=== PATIENT | male | born 1955 | race Caucasian/White ===

== ENCOUNTER 2018-03-22 13:25 | Observation (INO) ==
[2018-03-22] MEDS ORDERED: ACETAMINOPHEN 325 MG TABLET PO PRN (17:01)
[2018-03-22] MEDS ORDERED: PROMETHAZINE 25 MG/1 ML VIAL IM PRN (17:01)
[2018-03-22 17:48] LABS: Basophils % 0.3 % (0.0-0.8); Eosinophils # 0.5 10*3/uL (0.0-0.87); Eosinophils % 4.5 % (0.00-10.9); Hemoglobin 8.7 GM/DL (14.0-18.0); Immature Granulocytes % 1.5 %; Immature Granulocytes Absolute 0.16 #; Lymphocytes # 2.2 10*3/uL (1.4-4.0); Lymphocytes % 20.9 % (21.2-54.2); Mean Corpuscular HGB Conc 31.1 GM/DL (32-36); Mean Corpuscular Hemoglobin 31 PG (27-34); Mean Corpuscular Volume 98.2 FL (87-102); Mean Platelet Volume 10.1 FL (9.6-12.0); Monocytes # 0.8 10*3/uL (0.11-0.8); Monocytes % 7.4 % (1.7-12.7); Neutrophils # 6.9 10*3/uL (1.4-7.4); Neutrophils % 65.4 % (38.7-73.9); Platelet Count 89 T/CUMM (130-400); Red Blood Count 2.85 MC/CUMM (3.8-5.5); Red Cell Distribution Width 15.4 % (9.3-17.3); White Blood Count 10.5 T/CUMM (4-12)
[2018-03-22 18:11] LABS: Alanine Aminotransferase 13 U/L (16-61); Alkaline Phosphatase 133 U/L (45-117); Aspartate Amino Transferase 13 U/L (0-37); Bilirubin,Total < 0.39 MG/DL (0.2-1.0); Blood Urea Nitrogen 38 MG/DL (7-18); Calcium 8.3 MG/DL (8.5-10.1); Glucose 93 MG/DL (74-106); Osmolality,Calculated 285.5 MOS/KG (273-304); Potassium 4.6 MMOL/L (3.5-5.1); Sodium 139 MMOL/L (136-145); Total Protein 5.9 G/DL (6.4-8.3)
[2018-03-22 18:13] LABS: % Iron Saturation 8.9 % (18-50); Ferritin 124.6 ng/ml (26-388)
[2018-03-22 18:18] LABS: Thyroid Stimulating Hormone 0.369 uIU/ml (0.358-3.74)
[2018-03-22 18:29] LABS: Folate 7.7 NG/ML (5.4-24.0)
[2018-03-22] MEDS: SODIUM CHLORIDE 0.9% 1,000 ML IV SCH (18:45)
[2018-03-22] MEDS: TAMSULOSIN 0.4 MG CAPSULE PO SCH (21:57)
[2018-03-22] MEDS: PANTOPRAZOLE 40 MG VIAL IV SCH (21:57)
[2018-03-22] MEDS: buPROPion XL 150 MG TABLET PO SCH (21:57)
[2018-03-22] MEDS: traZODone 50 MG TABLET PO SCH (21:57)
[2018-03-22] MEDS: DOCUSATE SODIUM 100 MG CAPSULE PO SCH (21:57)
[2018-03-23] MEDS: SODIUM CHLORIDE 0.9% 1,000 ML IV SCH ×2 (01:56→10:10)
[2018-03-23 05:48] LABS: VLDL CHOLESTEROL 21.2 MG/DL
[2018-03-23 05:50] LABS: Albumin 1.8 G/DL (3.4-5.0); Bilirubin,Total 0.6 MG/DL (0.2-1.0); Osmolality,Calculated 291.1 MOS/KG (273-304); Potassium 4.3 MMOL/L (3.5-5.1); Total Protein 5.3 G/DL (6.4-8.3)
[2018-03-23 06:35] LABS: Basophils # 0.1 10*3/uL (0.0-0.2); Basophils % 0.5 % (0.0-0.8); Eosinophils # 1.3 10*3/uL (0.0-0.87); Eosinophils % 11.7 % (0.00-10.9); Hematocrit 25.7 VOL% (42.0-52.0); Hemoglobin 8.2 GM/DL (14.0-18.0); Immature Granulocytes % 1.4 %; Immature Granulocytes Absolute 0.15 #; Lymphocytes # 2.2 10*3/uL (1.4-4.0); Lymphocytes % 20.2 % (21.2-54.2); Mean Corpuscular HGB Conc 31.9 GM/DL (32-36); Mean Corpuscular Hemoglobin 31 PG (27-34); Mean Corpuscular Volume 98.1 FL (87-102); Mean Platelet Volume 10.6 FL (9.6-12.0); Monocytes % 9.1 % (1.7-12.7); NRBC # 0.02 10*3/uL; Neutrophils # 6.3 10*3/uL (1.4-7.4); Neutrophils % 57.1 % (38.7-73.9); Platelet Count 86 T/CUMM (130-400); Red Blood Count 2.62 MC/CUMM (3.8-5.5); Red Cell Distribution Width 15.7 % (9.3-17.3)
[2018-03-23 06:56] LABS: Eosinophils 6 % (0-10); Hypochromasia 1+; Lymphocytes 18 % (20-55); Platelet Estimate Decreased; Polychromasia Few; Segmented Neutrophils 75 % (50-85); Total Cells Counted 100
[2018-03-23] MEDS: ONDANSETRON 4 MG/2 ML VIAL IV PRN (07:09)
[2018-03-23] MEDS ORDERED: PANTOPRAZOLE 40 MG TABLET PO SCH (09:00)
[2018-03-23] MEDS: TAMSULOSIN 0.4 MG CAPSULE PO SCH ×2 (09:08→21:15)
[2018-03-23] MEDS: PANTOPRAZOLE 40 MG VIAL IV SCH ×2 (09:08→21:15)
[2018-03-23] MEDS: DOCUSATE SODIUM 100 MG CAPSULE PO SCH ×2 (09:08→21:15)
[2018-03-23] MEDS: buPROPion XL 150 MG TABLET PO SCH ×2 (09:08→21:15)
[2018-03-23 12:59] LABS: Apearance,Urine CLEAR (Clear); Bilirubin,Urine Negative (Negative); Blood, Urine Small mg/dL (Negative); Glucose,Urine (UA) Negative (Negative); Ketones,Urine Negative (Negative); Nitrite,Urine Negative (Negative); Protein,Urine 100 MG/DL; Urine Color Yellow (Yellow); Urine Specific Gravity 1.013 (1.001-1.035); Urine Urobilinogen < 2.0 EU/DL (0.2-1.0)
[2018-03-23 13:20] LABS: Bacteria,Urine Few /HPF (Few); RBC,Urine 0-1 /HPF (0-4)
[2018-03-23] MEDS: FOLIC ACID 1 MG TABLET PO SCH (21:14)
[2018-03-23] MEDS: ACYCLOVIR 200 MG CAPSULE PO SCH (21:14)
[2018-03-23] MEDS: traZODone 50 MG TABLET PO SCH (21:15)
[2018-03-24 07:42] LABS: Basophils % 0.3 % (0.0-0.8); Eosinophils # 1.1 10*3/uL (0.0-0.87); Eosinophils % 10.2 % (0.00-10.9); Hematocrit 25.1 VOL% (42.0-52.0); Immature Granulocytes Absolute 0.11 #; Lymphocytes % 18.8 % (21.2-54.2); Mean Corpuscular HGB Conc 31.9 GM/DL (32-36); Mean Corpuscular Hemoglobin 31 PG (27-34); Mean Corpuscular Volume 97.7 FL (87-102); Mean Platelet Volume 10.2 FL (9.6-12.0); Monocytes % 9.5 % (1.7-12.7); Neutrophils # 6.5 10*3/uL (1.4-7.4); Neutrophils % 60.2 % (38.7-73.9); Platelet Count 86 T/CUMM (130-400); Red Blood Count 2.57 MC/CUMM (3.8-5.5); Red Cell Distribution Width 15.7 % (9.3-17.3); White Blood Count 10.9 T/CUMM (4-12)
[2018-03-24 07:58] VITALS: BP 145/85
[2018-03-24 08:00] LABS: Calcium 8.1 MG/DL (8.5-10.1); Osmolality,Calculated 284.4 MOS/KG (273-304); Potassium 4.6 MMOL/L (3.5-5.1)
[2018-03-24 08:04] LABS: Hypochromasia 1+; Platelet Estimate Decreased
[2018-03-24] MEDS: ONDANSETRON 4 MG/2 ML VIAL IV PRN (08:51)
[2018-03-24] MEDS: TAMSULOSIN 0.4 MG CAPSULE PO SCH (08:52)
[2018-03-24] MEDS: ACYCLOVIR 200 MG CAPSULE PO SCH (08:52)
[2018-03-24] MEDS: PANTOPRAZOLE 40 MG VIAL IV SCH (08:52)
[2018-03-24] MEDS: FOLIC ACID 1 MG TABLET PO SCH (08:52)
[2018-03-24] MEDS: buPROPion XL 150 MG TABLET PO SCH (08:52)
[2018-03-24] MEDS: DOCUSATE SODIUM 100 MG CAPSULE PO SCH (08:52)
== END 2018-03-24 12:04 | disposition home or self-care (01) ==
LOC: INTOOBSV 15:02 → N.5E 15:02 → SUATTDRO 15:02
PROVIDERS: ADMIT Internal Medicine; ATTEND Internal Medicine

== ENCOUNTER 2018-07-04 13:29 | Inpatient (IN) ==
[2018-07-04] MEDS ORDERED: ALBUTEROL/IPRATROPIUM 3 ML NEB RESP TX STA (13:53)
[2018-07-04] MEDS ORDERED: SODIUM CHLORIDE 0.9% 1,000 ML IV STA (13:53)
[2018-07-04] MEDS ORDERED: cefTRIAXone 1,000 MG VIAL IM STA (13:53)
[2018-07-04] MEDS ORDERED: SODIUM CHLORIDE 0.9% 100 ML IV ONE (14:13)
[2018-07-04] MEDS ORDERED: cefTRIAXone 1,000 MG in SODIUM CHLORIDE 0.9% 100 ML IV STA (14:19)
[2018-07-04 14:24] LABS: Basophils % 0.3 % (0.0-0.8); Hematocrit 32.2 VOL% (42.0-52.0); Hemoglobin 9.6 GM/DL (14.0-18.0); Immature Granulocytes % 0.8 %; Immature Granulocytes Absolute 0.07 #; Lymphocytes # 0.7 10*3/uL (1.4-4.0); Lymphocytes % 7.3 % (21.2-54.2); Mean Corpuscular HGB Conc 29.8 GM/DL (32-36); Mean Corpuscular Volume 105.9 FL (87-102); Mean Platelet Volume 10.1 FL (9.6-12.0); Monocytes % 5.2 % (1.7-12.7); Neutrophils % 86.4 % (38.7-73.9); Red Blood Count 3.04 MC/CUMM (3.8-5.5); White Blood Count 9.2 T/CUMM (4-12)
[2018-07-04 14:25] LABS: Platelet Count 50 T/CUMM (130-400)
[2018-07-04 14:42] LABS: Albumin 2.1 G/DL (3.4-5.0); Bilirubin,Total 0.4 MG/DL (0.2-1.0); Calcium 8.2 MG/DL (8.5-10.1); Osmolality,Calculated 289.4 MOS/KG (273-304); Total Protein 5.2 G/DL (6.4-8.3)
[2018-07-04 14:45] LABS: Anisocytosis 1+; Platelet Estimate Decreased
[2018-07-04] MEDS ORDERED: ALBUTEROL 2.5 MG/3 ML NEB RESP TX PRN (16:35)
[2018-07-04 16:54] LABS: Apearance,Urine CLEAR (Clear); Bacteria,Urine Occasional /HPF (Few); Bilirubin,Urine Negative (Negative); Blood, Urine Moderate mg/dL (Negative); Glucose,Urine (UA) Negative (Negative); Ketones,Urine Negative (Negative); Mucus,Urine Occasional /LPF (Occasional); Nitrite,Urine Negative (Negative); Protein,Urine >=500 MG/DL; RBC,Urine 4 /HPF (0-4); Squamous Epithelial Cell,Urine Occasional /HPF (0-10); Urine Color Yellow (Yellow); Urine Specific Gravity 1.012 (1.001-1.035); Urine Urobilinogen < 2.0 EU/DL (0.2-1.0); WBC,Urine 1 /HPF (0-6)
[2018-07-04] MEDS ORDERED: methylPREDNISolone SOD SUC 125 MG/2 ML VIAL IV SCH (17:00)
[2018-07-04] MEDS ORDERED: ONDANSETRON 4 MG TABLET PO PRN (17:04)
[2018-07-04] MEDS: PIPERACILLIN/TAZOBACTAM 3,375 MG in SODIUM CHLORIDE 0.9% 100 ML IV SCH (17:04)
[2018-07-04] MEDS ORDERED: ACETAMINOPHEN 325 MG TABLET PO PRN (17:06)
[2018-07-04] MEDS ORDERED: ONDANSETRON 4 MG/2 ML VIAL IV PRN (17:06)
[2018-07-04] MEDS ORDERED: PROMETHAZINE 25 MG/1 ML VIAL IM PRN (17:06)
[2018-07-04 17:33] LABS: ABG Base Excess -3.2 MMOL/L (-2.5-2.5); ABG HCO3 21.7 MMOL/L (20-26); ABG Oxygen Saturation 95.3 % (95-100); ABG PCO2 38.8 MM HG (35-48); ABG PO2 82.8 MM HG (80-95); ABG TCO2 19.8 MMOL/L (23-27)
[2018-07-04] MEDS: buPROPion SR 150 MG TABLET PO SCH (20:11)
[2018-07-04] MEDS: guaiFENesin/DM ER 600-30 MG TABLET PO PRN (20:11)
[2018-07-04] MEDS: ACYCLOVIR 200 MG CAPSULE PO SCH (20:12)
[2018-07-04] MEDS: MELATONIN 3 MG TABLET PO SCH (20:12)
[2018-07-04] MEDS: TAMSULOSIN 0.4 MG CAPSULE PO SCH (20:12)
[2018-07-04 20:25] LABS: CKMB % 3.2 %; Troponin I 0.356 NG/ML (0.00-0.045)
[2018-07-04] MEDS: methylPREDNISolone SOD SUC 40 MG/1 ML VIAL IV SCH (20:59)
[2018-07-04] MEDS: SODIUM CHLORIDE 0.45% 1,000 ML IV SCH (21:01)
[2018-07-05] MEDS: PIPERACILLIN/TAZOBACTAM 3,375 MG in SODIUM CHLORIDE 0.9% 100 ML IV SCH ×3 (00:29→16:32)
[2018-07-05 05:26] LABS: Basophils % 0.2 % (0.0-0.8); Hematocrit 26.8 VOL% (42.0-52.0); Hemoglobin 8.2 GM/DL (14.0-18.0); Immature Granulocytes % 0.5 %; Immature Granulocytes Absolute 0.03 #; Lymphocytes # 0.8 10*3/uL (1.4-4.0); Lymphocytes % 13.5 % (21.2-54.2); Mean Corpuscular HGB Conc 30.6 GM/DL (32-36); Mean Corpuscular Volume 105.1 FL (87-102); Mean Platelet Volume 10.2 FL (9.6-12.0); Monocytes % 2.8 % (1.7-12.7); Red Blood Count 2.55 MC/CUMM (3.8-5.5); Red Cell Distribution Width 16.4 % (9.3-17.3); White Blood Count 6.1 T/CUMM (4-12)
[2018-07-05 05:36] LABS: Platelet Count 37 T/CUMM (130-400)
[2018-07-05 05:43] LABS: Albumin 1.9 G/DL (3.4-5.0); Bilirubin,Total 0.5 MG/DL (0.2-1.0); Calcium 7.9 MG/DL (8.5-10.1); Osmolality,Calculated 294.3 MOS/KG (273-304); Total Protein 4.8 G/DL (6.4-8.3)
[2018-07-05 05:45] LABS: CKMB % 3.8 %; Troponin I 0.264 NG/ML (0.00-0.045)
[2018-07-05 05:47] LABS: Hypochromasia 1+; Platelet Estimate Decreased
[2018-07-05] MEDS ORDERED: SPIRONOLACTONE 25 MG TABLET PO SCH (09:00)
[2018-07-05] MEDS ORDERED: predniSONE 10 MG TABLET PO SCH (09:00)
[2018-07-05] MEDS ORDERED: ASPIRIN EC 81 MG TABLET PO SCH (09:00)
[2018-07-05] MEDS: DOXYCYCLINE HYCLATE 100 MG CAPSULE PO SCH (10:16)
[2018-07-05] MEDS: ACYCLOVIR 200 MG CAPSULE PO SCH ×2 (10:16→20:10)
[2018-07-05] MEDS: POTASSIUM GLUCONATE 500 MG TABLET PO SCH (10:17)
[2018-07-05] MEDS: FUROSEMIDE 20 MG TABLET PO SCH (10:17)
[2018-07-05] MEDS: buPROPion SR 150 MG TABLET PO SCH ×2 (10:17→20:10)
[2018-07-05] MEDS: TAMSULOSIN 0.4 MG CAPSULE PO SCH (10:18)
[2018-07-05] MEDS: FLUCONAZOLE INJ 200 MG in PREMIX 1 EACH IV SCH (10:19)
[2018-07-05] MEDS: methylPREDNISolone SOD SUC 40 MG/1 ML VIAL IV SCH ×2 (10:19→20:11)
[2018-07-05] MEDS: guaiFENesin/DM ER 600-30 MG TABLET PO PRN (10:40)
[2018-07-05] MEDS: ALBUTEROL/IPRATROPIUM 3 ML NEB RESP TX SCH ×2 (12:20→20:00)
[2018-07-05 17:10] LABS: Creatinine,Urine Random 69 MG/DL; Total Protein,Urine Random 360 MG/DL; Urea Nitrogen, Urine Random 773 MG/DL
[2018-07-05] MEDS: ALFUZOSIN 10 MG TABLET PO SCH (20:10)
[2018-07-05] MEDS: ROSUVASTATIN 20 MG TABLET PO SCH (20:10)
[2018-07-05] MEDS: MELATONIN 3 MG TABLET PO SCH (20:10)
[2018-07-06] MEDS: SODIUM CHLORIDE 0.45% 1,000 ML IV SCH (00:11)
[2018-07-06] MEDS: PIPERACILLIN/TAZOBACTAM 3,375 MG in SODIUM CHLORIDE 0.9% 100 ML IV SCH ×3 (00:12→20:10)
[2018-07-06] MEDS: ALBUTEROL/IPRATROPIUM 3 ML NEB RESP TX SCH ×4 (01:00→20:13)
[2018-07-06 04:56] LABS: Basophils % 0.2 % (0.0-0.8); Hematocrit 25.1 VOL% (42.0-52.0); Hemoglobin 7.6 GM/DL (14.0-18.0); Immature Granulocytes % 0.5 %; Immature Granulocytes Absolute 0.03 #; Lymphocytes # 0.7 10*3/uL (1.4-4.0); Lymphocytes % 10.5 % (21.2-54.2); Mean Corpuscular HGB Conc 30.3 GM/DL (32-36); Mean Corpuscular Volume 104.1 FL (87-102); Mean Platelet Volume 11.6 FL (9.6-12.0); Monocytes % 5.3 % (1.7-12.7); Neutrophils % 83.5 % (38.7-73.9); Red Blood Count 2.41 MC/CUMM (3.8-5.5); Red Cell Distribution Width 16.1 % (9.3-17.3); White Blood Count 6.6 T/CUMM (4-12)
[2018-07-06 05:05] LABS: Platelet Count 36 T/CUMM (130-400)
[2018-07-06 05:15] LABS: Calcium 7.9 MG/DL (8.5-10.1); Osmolality,Calculated 299.4 MOS/KG (273-304)
[2018-07-06 05:16] LABS: Hypochromasia 1+; Ovalocytes Slight; Platelet Estimate Decreased
[2018-07-06 05:18] LABS: Albumin 1.7 G/DL (3.4-5.0); Bilirubin,Total 0.7 MG/DL (0.2-1.0); Calcium 7.8 MG/DL (8.5-10.1); Osmolality,Calculated 297.5 MOS/KG (273-304); Total Protein 4.6 G/DL (6.4-8.3)
[2018-07-06] MEDS ORDERED: SODIUM CHLORIDE 0.9% 1,000 ML IV PRN (07:03)
[2018-07-06] MEDS: POTASSIUM GLUCONATE 500 MG TABLET PO SCH (08:36)
[2018-07-06] MEDS: methylPREDNISolone SOD SUC 40 MG/1 ML VIAL IV SCH ×2 (08:36→20:08)
[2018-07-06] MEDS: FUROSEMIDE 20 MG TABLET PO SCH (08:36)
[2018-07-06] MEDS: ACYCLOVIR 200 MG CAPSULE PO SCH ×2 (08:37→20:08)
[2018-07-06] MEDS: guaiFENesin/DM ER 600-30 MG TABLET PO PRN (08:37)
[2018-07-06] MEDS: DOXYCYCLINE HYCLATE 100 MG CAPSULE PO SCH (08:37)
[2018-07-06] MEDS: buPROPion SR 150 MG TABLET PO SCH ×2 (08:37→20:08)
[2018-07-06 09:05] LABS: Immuno Free Light Chain Kappa 4.95 MG/DL (0.33-1.94); Immuno Free Light Chain Lambda 4.01 MG/DL (0.57-2.63); Immuno Free Light Chain Ratio 1.23 MG/DL (0.26-1.65)
[2018-07-06] MEDS: FLUCONAZOLE INJ 200 MG in PREMIX 1 EACH IV SCH (10:33)
[2018-07-06] MEDS: hydrALAZINE 20 MG/1 ML VIAL IV PRN ×2 (16:08→20:47)
[2018-07-06] MEDS ORDERED: CARVEDILOL 3.125 MG TABLET PO ONE (17:30)
[2018-07-06] MEDS ORDERED: FUROSEMIDE 40 MG/4 ML VIAL IM ONE (18:31)
[2018-07-06] MEDS ORDERED: FUROSEMIDE 40 MG/4 ML VIAL IV ONE (18:31)
[2018-07-06] MEDS: MELATONIN 3 MG TABLET PO SCH (20:07)
[2018-07-06] MEDS: ROSUVASTATIN 20 MG TABLET PO SCH (20:07)
[2018-07-06] MEDS: CARVEDILOL 3.125 MG TABLET PO SCH (20:07)
[2018-07-06] MEDS: ALFUZOSIN 10 MG TABLET PO SCH (20:08)
[2018-07-07] MEDS: ALBUTEROL/IPRATROPIUM 3 ML NEB RESP TX SCH ×4 (00:55→20:33)
[2018-07-07] MEDS: PIPERACILLIN/TAZOBACTAM 3,375 MG in SODIUM CHLORIDE 0.9% 100 ML IV SCH ×3 (03:04→20:37)
[2018-07-07 05:17] LABS: Hematocrit 31.8 VOL% (42.0-52.0); Immature Granulocytes % 0.5 %; Immature Granulocytes Absolute 0.05 #; Lymphocytes # 1.1 10*3/uL (1.4-4.0); Lymphocytes % 10.9 % (21.2-54.2); Mean Corpuscular HGB Conc 31.4 GM/DL (32-36); Mean Corpuscular Volume 96.4 FL (87-102); Mean Platelet Volume 11.4 FL (9.6-12.0); Monocytes % 3.1 % (1.7-12.7); Neutrophils % 85.5 % (38.7-73.9)
[2018-07-07 05:21] LABS: Platelet Count 33 T/CUMM (130-400)
[2018-07-07 05:36] LABS: Calcium 8.1 MG/DL (8.5-10.1); Osmolality,Calculated 299.3 MOS/KG (273-304); Total Protein 4.9 G/DL (6.4-8.3)
[2018-07-07 06:09] LABS: Platelet Estimate Decreased
[2018-07-07 06:10] LABS: Polychromasia Few
[2018-07-07] MEDS: guaiFENesin/DM ER 600-30 MG TABLET PO PRN (08:53)
[2018-07-07] MEDS: FUROSEMIDE 20 MG TABLET PO SCH (08:53)
[2018-07-07] MEDS: buPROPion SR 150 MG TABLET PO SCH ×2 (08:53→20:37)
[2018-07-07] MEDS: DOXYCYCLINE HYCLATE 100 MG CAPSULE PO SCH (08:53)
[2018-07-07] MEDS: ACYCLOVIR 200 MG CAPSULE PO SCH ×2 (08:53→20:37)
[2018-07-07] MEDS: methylPREDNISolone SOD SUC 40 MG/1 ML VIAL IV SCH ×2 (08:54→20:38)
[2018-07-07] MEDS: FLUCONAZOLE INJ 200 MG in PREMIX 1 EACH IV SCH (08:54)
[2018-07-07] MEDS: CARVEDILOL 3.125 MG TABLET PO SCH (08:54)
[2018-07-07] MEDS: POTASSIUM GLUCONATE 500 MG TABLET PO SCH (09:46)
[2018-07-07] MEDS: MELATONIN 3 MG TABLET PO SCH (20:36)
[2018-07-07] MEDS: CARVEDILOL 6.25 MG TABLET PO SCH (20:37)
[2018-07-07] MEDS: hydrALAZINE 20 MG/1 ML VIAL IV PRN (20:40)
[2018-07-07] MEDS: ROSUVASTATIN 20 MG TABLET PO SCH (20:47)
[2018-07-07] MEDS: ALFUZOSIN 10 MG TABLET PO SCH (20:47)
[2018-07-07] MEDS ORDERED: ALUMINUM/MAGNES/SIMETH MAX STR 30 ML UDCUP PO PRN (21:38)
[2018-07-07] MEDS: PANTOPRAZOLE 40 MG TABLET PO SCH (22:00)
[2018-07-08] MEDS: ALBUTEROL/IPRATROPIUM 3 ML NEB RESP TX SCH ×2 (02:16→07:16)
[2018-07-08] MEDS: PIPERACILLIN/TAZOBACTAM 3,375 MG in SODIUM CHLORIDE 0.9% 100 ML IV SCH ×2 (03:50→11:52)
[2018-07-08 05:02] LABS: Hematocrit 31.9 VOL% (42.0-52.0); Immature Granulocytes % 0.7 %; Immature Granulocytes Absolute 0.06 #; Lymphocytes % 11.1 % (21.2-54.2); Mean Corpuscular HGB Conc 31.3 GM/DL (32-36); Mean Corpuscular Volume 96.7 FL (87-102); Mean Platelet Volume 11.2 FL (9.6-12.0); Monocytes % 3.4 % (1.7-12.7); NRBC # 0.02 10*3/uL; Neutrophils % 84.8 % (38.7-73.9); Red Cell Distribution Width 20.3 % (9.3-17.3); White Blood Count 9.1 T/CUMM (4-12)
[2018-07-08 05:10] LABS: Platelet Count 31 T/CUMM (130-400)
[2018-07-08 05:33] LABS: Hypochromasia 1+; Ovalocytes 1+; Platelet Estimate Decreased
[2018-07-08] MEDS: SODIUM CHLORIDE 0.45% 1,000 ML IV SCH (07:36)
[2018-07-08] MEDS: ACYCLOVIR 200 MG CAPSULE PO SCH (08:53)
[2018-07-08] MEDS: CARVEDILOL 6.25 MG TABLET PO SCH (08:53)
[2018-07-08] MEDS: FLUCONAZOLE INJ 200 MG in PREMIX 1 EACH IV SCH (08:53)
[2018-07-08] MEDS: methylPREDNISolone SOD SUC 40 MG/1 ML VIAL IV SCH (08:53)
[2018-07-08] MEDS: buPROPion SR 150 MG TABLET PO SCH (08:53)
[2018-07-08] MEDS: DOXYCYCLINE HYCLATE 100 MG CAPSULE PO SCH (08:53)
[2018-07-08] MEDS: PANTOPRAZOLE 40 MG TABLET PO SCH (08:53)
[2018-07-08] MEDS ORDERED: SODIUM POLYSTYRENE SULFATE 15 GM/60 ML BOTTLE PO STA (11:19)
[2018-07-08 12:12] VITALS: BP 163/107
[2018-07-08 14:40] LABS: Myeloperoxidase Antibody < 0.2 U
== END 2018-07-08 12:39 | disposition home or self-care (01) | DRG 191 ==
LOC: N.EDINP 13:29 → N.ED 13:29 → N.4E 17:29 → SUATTDRO 07-05 14:16
PROVIDERS: ADMIT Internal Medicine; ATTEND Internal Medicine

== ENCOUNTER 2019-08-09 07:55 | Inpatient (IN) ==
[2019-08-09] MEDS ORDERED: ONDANSETRON 4 MG/2 ML VIAL IV STA ×2 (08:14→11:34)
[2019-08-09] MEDS ORDERED: SODIUM CHLORIDE 0.9% 1,000 ML IV STA (08:14)
[2019-08-09 09:13] LABS: Basophils # 0.1 10*3/uL (0.0-0.2); Basophils % 0.3 % (0.0-0.8); Eosinophils # 0.3 10*3/uL (0.0-0.87); Eosinophils % 1.7 % (0.00-10.9); Hematocrit 23.6 VOL% (42.0-52.0); Hemoglobin 7.5 GM/DL (14.0-18.0); Immature Granulocytes % 0.8 %; Immature Granulocytes Absolute 0.15 #; Lymphocytes # 2.9 10*3/uL (1.4-4.0); Lymphocytes % 15.6 % (21.2-54.2); Mean Corpuscular HGB Conc 31.8 GM/DL (32-36); Mean Corpuscular Volume 94.8 FL (87-102); Mean Platelet Volume 11.5 FL (9.6-12.0); Monocytes % 5.6 % (1.7-12.7); Platelet Count 100 T/CUMM (130-400); Red Blood Count 2.49 MC/CUMM (3.8-5.5); Red Cell Distribution Width 14.7 % (9.3-17.3); White Blood Count 18.4 T/CUMM (4-12)
[2019-08-09 09:34] LABS: PT Patient Result 10.5 SECS (9.8-11.9); Partial Thromboplastin Time 25.7 SECS (23.9-33.8)
[2019-08-09 09:39] LABS: Bilirubin,Total 0.7 MG/DL (0.2-1.0); Calcium 9.1 MG/DL (8.5-10.1); Ferritin 207.8 ng/ml (26-388); Osmolality,Calculated 297.2 MOS/KG (273-304)
[2019-08-09 09:40] LABS: Troponin I 0.199 NG/ML (0.00-0.045)
[2019-08-09 09:49] LABS: Free T4 (Free Thyroxine) 1.57 NG/DL (0.76-1.46); Thyroid Stimulating Hormone 0.492 uIU/ml (0.358-3.74)
[2019-08-09] MEDS ORDERED: PIPERACILLIN/TAZOBACTAM 3,375 MG in SODIUM CHLORIDE 0.9% 100 ML IV STA (10:01)
[2019-08-09 11:17] LABS: Apearance,Urine CLEAR (Clear); Bilirubin,Urine Negative (Negative); Blood, Urine Moderate mg/dL (Negative); Glucose,Urine (UA) Negative (Negative); Hyaline Casts,Urine 3 /LPF (0-3); Ketones,Urine Negative (Negative); Mucus,Urine Occasional /LPF (Occasional); Nitrite,Urine Negative (Negative); Protein,Urine 100 MG/DL; RBC,Urine 10 /HPF (0-4); Squamous Epithelial Cell,Urine Occasional /HPF (0-10); Urine Color Yellow (Yellow); Urine Specific Gravity 1.014 (1.001-1.035); Urine Urobilinogen < 2.0 EU/DL (0.2-1.0); WBC,Urine 4 /HPF (0-6)
[2019-08-09] MEDS ORDERED: METOCLOPRAMIDE 10 MG/2 ML VIAL IV STA (11:34)
[2019-08-09] MEDS ORDERED: ONDANSETRON 4 MG/2 ML VIAL IV PRN (13:16)
[2019-08-09] MEDS ORDERED: fentaNYL 100 MCG/2 ML VIAL IV PRN (13:16)
[2019-08-09] MEDS ORDERED: NITROGLYCERIN SL 0.4 MG TABLET SL PRN (17:49)
[2019-08-09] MEDS: METOCLOPRAMIDE 10 MG/2 ML VIAL IV SCH (17:51)
[2019-08-09] MEDS ORDERED: PROMETHAZINE INJ 12.5 MG in SODIUM CHLORIDE 0.9% 50 ML IV PRN (18:13)
[2019-08-09] MEDS ORDERED: hydrALAZINE 20 MG/1 ML VIAL IV PRN (18:13)
[2019-08-09 18:34] LABS: Troponin I 0.222 NG/ML (0.00-0.045)
[2019-08-09] MEDS: TORSEMIDE 20 MG TABLET PO SCH (22:01)
[2019-08-09] MEDS: buPROPion SR 150 MG TABLET PO SCH (22:02)
[2019-08-09] MEDS: PIPERACILLIN/TAZOBACTAM 3,375 MG in SODIUM CHLORIDE 0.9% 100 ML IV SCH (22:02)
[2019-08-10] MEDS: METOCLOPRAMIDE 10 MG/2 ML VIAL IV SCH ×4 (00:27→17:52)
[2019-08-10 03:04] LABS: Basophils % 0.4 % (0.0-0.8); Eosinophils # 0.5 10*3/uL (0.0-0.87); Eosinophils % 4.5 % (0.00-10.9); Hematocrit 28.3 VOL% (42.0-52.0); Hemoglobin 9.2 GM/DL (14.0-18.0); Immature Granulocytes % 0.6 %; Immature Granulocytes Absolute 0.06 #; Lymphocytes # 2.6 10*3/uL (1.4-4.0); Lymphocytes % 24.1 % (21.2-54.2); Mean Corpuscular HGB Conc 32.5 GM/DL (32-36); Mean Corpuscular Volume 93.1 FL (87-102); Mean Platelet Volume 11.6 FL (9.6-12.0); Monocytes % 7.6 % (1.7-12.7); Neutrophils % 62.8 % (38.7-73.9); Platelet Count 66 T/CUMM (130-400); Red Blood Count 3.04 MC/CUMM (3.8-5.5); Red Cell Distribution Width 14.7 % (9.3-17.3); White Blood Count 10.8 T/CUMM (4-12)
[2019-08-10 03:23] LABS: Alanine Aminotransferase 11 U/L (16-61); Albumin 2.7 G/DL (3.4-5.0); Alkaline Phosphatase 98 U/L (45-117); Aspartate Amino Transferase 10 U/L (0-37); Blood Urea Nitrogen 86 MG/DL (7-18); Calcium 8.5 MG/DL (8.5-10.1); Estimated Glom Filtration Rate 12 ML/MIN; Glucose 96 MG/DL (74-106); Osmolality,Calculated 298.8 MOS/KG (273-304); Total Protein 6.6 G/DL (6.4-8.3)
[2019-08-10 03:24] LABS: Troponin I 0.224 NG/ML (0.00-0.045)
[2019-08-10] MEDS: TORSEMIDE 20 MG TABLET PO SCH (08:13)
[2019-08-10] MEDS: buPROPion SR 150 MG TABLET PO SCH ×2 (08:13→21:56)
[2019-08-10] MEDS: ASPIRIN EC 81 MG TABLET PO SCH (08:13)
[2019-08-10] MEDS: FINASTERIDE 5 MG TABLET PO SCH (08:13)
[2019-08-10] MEDS: PANTOPRAZOLE 40 MG TABLET PO SCH (08:14)
[2019-08-10] MEDS: PIPERACILLIN/TAZOBACTAM 3,375 MG in SODIUM CHLORIDE 0.9% 100 ML IV SCH ×2 (08:14→21:57)
[2019-08-10] MEDS: TAMSULOSIN 0.4 MG CAPSULE PO SCH (08:14)
[2019-08-10] MEDS: POTASSIUM CHLORIDE INJ 30 MEQ in DEXTROSE 5% NACL 0.45% 1,000 ML IV SCH (13:18)
[2019-08-11] MEDS: METOCLOPRAMIDE 10 MG/2 ML VIAL IV SCH ×4 (01:50→17:32)
[2019-08-11 03:26] LABS: Basophils # 0.1 10*3/uL (0.0-0.2); Basophils % 0.5 % (0.0-0.8); Eosinophils # 0.6 10*3/uL (0.0-0.87); Eosinophils % 6.3 % (0.00-10.9); Hematocrit 26.8 VOL% (42.0-52.0); Hemoglobin 8.6 GM/DL (14.0-18.0); Immature Granulocytes % 0.6 %; Immature Granulocytes Absolute 0.06 #; Lymphocytes # 2.4 10*3/uL (1.4-4.0); Lymphocytes % 25.8 % (21.2-54.2); Mean Corpuscular HGB Conc 32.1 GM/DL (32-36); Mean Corpuscular Volume 93.7 FL (87-102); Mean Platelet Volume 11.3 FL (9.6-12.0); Monocytes % 7.4 % (1.7-12.7); Neutrophils % 59.4 % (38.7-73.9); Platelet Count 58 T/CUMM (130-400); Red Blood Count 2.86 MC/CUMM (3.8-5.5); Red Cell Distribution Width 14.6 % (9.3-17.3); White Blood Count 9.3 T/CUMM (4-12)
[2019-08-11 03:41] LABS: Calcium 8.3 MG/DL (8.5-10.1); Osmolality,Calculated 298.8 MOS/KG (273-304)
[2019-08-11 04:09] LABS: Anisocytosis 1+; Band Neutrophils 2 % (0-10); Eosinophils 2 % (0-10); Lymphocytes 29 % (20-55); Segmented Neutrophils 60 % (50-85); Total Cells Counted 100
[2019-08-11 04:10] LABS: Ovalocytes Few; Platelet Estimate Decreased
[2019-08-11] MEDS: POTASSIUM CHLORIDE INJ 30 MEQ in DEXTROSE 5% NACL 0.45% 1,000 ML IV SCH ×2 (06:25→17:31)
[2019-08-11] MEDS: buPROPion SR 150 MG TABLET PO SCH (09:20)
[2019-08-11] MEDS: FINASTERIDE 5 MG TABLET PO SCH (09:20)
[2019-08-11] MEDS: TAMSULOSIN 0.4 MG CAPSULE PO SCH (09:20)
[2019-08-11] MEDS: PANTOPRAZOLE 40 MG TABLET PO SCH (09:20)
[2019-08-11] MEDS: ASPIRIN EC 81 MG TABLET PO SCH (09:20)
[2019-08-11] MEDS: PIPERACILLIN/TAZOBACTAM 3,375 MG in SODIUM CHLORIDE 0.9% 100 ML IV SCH (09:21)
[2019-08-11 17:17] VITALS: BP 145/87
[2019-08-11] MEDS ORDERED: POTASSIUM CHLORIDE 20 MEQ TABLET PO SCH (21:00)
== END 2019-08-11 18:45 | disposition home health service (06) | DRG 682 ==
LOC: N.ED 07:55 → N.EDINP 13:12 → N.4E 17:34
PROVIDERS: ADMIT Family Medicine; ATTEND Family Medicine

== ENCOUNTER 2019-11-03 14:18 | Observation (INO) ==
[2019-11-03 15:02] LABS: Basophils # 0.1 10*3/uL (0.0-0.2); Basophils % 1.3 % (0.0-0.8); Eosinophils # 0.4 10*3/uL (0.0-0.87); Eosinophils % 7.1 % (0.00-10.9); Hematocrit 26.9 VOL% (42.0-52.0); Hemoglobin 8.3 GM/DL (14.0-18.0); Immature Granulocytes Absolute 0.06 #; Lymphocytes # 2.3 10*3/uL (1.4-4.0); Lymphocytes % 36.5 % (21.2-54.2); Mean Corpuscular HGB Conc 30.9 GM/DL (32-36); Mean Corpuscular Volume 91.2 FL (87-102); Monocytes % 10.3 % (1.7-12.7); NRBC # 0.02 10*3/uL; Neutrophils % 43.8 % (38.7-73.9); Red Blood Count 2.95 MC/CUMM (3.8-5.5); Red Cell Distribution Width 17.2 % (9.3-17.3); White Blood Count 6.2 T/CUMM (4-12)
[2019-11-03 15:04] LABS: Platelet Count 109 T/CUMM (130-400)
[2019-11-03 15:19] LABS: Calcium 8.9 MG/DL (8.5-10.1); Osmolality,Calculated 293.4 MOS/KG (273-304)
[2019-11-03 15:33] LABS: Band Neutrophils 1 % (0-10); Eosinophils 5 % (0-10); Hypochromasia 1+; Lymphocytes 34 % (20-55); Microcytosis 1+; Ovalocytes Slight; Platelet Estimate Decreased; Segmented Neutrophils 51 % (50-85); Total Cells Counted 100
[2019-11-03 15:35] LABS: PT Patient Result 10.9 SECS (9.8-11.9); Partial Thromboplastin Time 29.1 SECS (23.9-33.8)
[2019-11-03] MEDS ORDERED: ACETAMINOPHEN 325 MG TABLET PO PRN (17:00)
[2019-11-03] MEDS ORDERED: hydrALAZINE 20 MG/1 ML VIAL IV PRN (17:00)
[2019-11-03] MEDS ORDERED: DEXTROSE 50% 25 GM/50 ML VIAL IV PRN (17:00)
[2019-11-03] MEDS ORDERED: guaiFENesin/DM ER 600-30 MG TABLET PO PRN (17:00)
[2019-11-03] MEDS ORDERED: diphenhydrAMINE CAP 25 MG CAPSULE PO PRN (17:00)
[2019-11-03] MEDS ORDERED: BISACODYL 5 MG TABLET PO PRN (17:00)
[2019-11-03] MEDS ORDERED: ONDANSETRON 4 MG/2 ML VIAL IV PRN (17:00)
[2019-11-03] MEDS ORDERED: DOCUSATE SODIUM 100 MG CAPSULE PO PRN (17:00)
[2019-11-03] MEDS ORDERED: ALUMINUM/MAGNES/SIMETH MAX STR 30 ML UDCUP PO PRN (17:00)
[2019-11-03] MEDS ORDERED: CALCIUM CARBONATE CHEW 500 MG TABLET PO PRN (17:00)
[2019-11-03] MEDS ORDERED: GLUCAGON 1 MG VIAL IM PRN (17:00)
[2019-11-03] MEDS ORDERED: traZODone 50 MG TABLET PO PRN (17:00)
[2019-11-03] MEDS ORDERED: LACTULOSE 20 GM/30 ML UDCUP PO PRN (17:00)
[2019-11-03] MEDS ORDERED: SIMETHICONE CHEW 125 MG TABLET PO PRN (17:00)
[2019-11-03] MEDS ORDERED: PROMETHAZINE 25 MG/1 ML VIAL IM PRN (17:00)
[2019-11-03] MEDS ORDERED: ZALEPLON 5 MG CAPSULE PO PRN (17:00)
[2019-11-03] MEDS ORDERED: NICOTINE 21 MG/24 HR PATCH TRANSDERM PRN (17:00)
[2019-11-03 18:00] LABS: Ferritin 653.7 ng/ml (26-388)
[2019-11-03] MEDS: AZITHROMYCIN INJ 500 MG in SODIUM CHLORIDE 0.9% 250 ML IV SCH (18:25)
[2019-11-03] MEDS: cefTRIAXone 1,000 MG in SYRINGE 1 EACH IV SCH (18:29)
[2019-11-04 05:34] LABS: Basophils # 0.1 10*3/uL (0.0-0.2); Basophils % 1.3 % (0.0-0.8); Eosinophils # 0.4 10*3/uL (0.0-0.87); Eosinophils % 6.8 % (0.00-10.9); Hematocrit 22.9 VOL% (42.0-52.0); Hemoglobin 7.1 GM/DL (14.0-18.0); Immature Granulocytes % 1.6 %; Immature Granulocytes Absolute 0.09 #; Lymphocytes # 2.7 10*3/uL (1.4-4.0); Lymphocytes % 48.3 % (21.2-54.2); Mean Corpuscular Volume 91.2 FL (87-102); Monocytes % 9.5 % (1.7-12.7); NRBC # 0.02 10*3/uL; Neutrophils % 32.5 % (38.7-73.9); Platelet Count 84 T/CUMM (130-400); Red Blood Count 2.51 MC/CUMM (3.8-5.5); Red Cell Distribution Width 17.5 % (9.3-17.3); White Blood Count 5.6 T/CUMM (4-12)
[2019-11-04 05:59] LABS: Albumin 2.7 G/DL (3.4-5.0); Bilirubin,Total 1.1 MG/DL (0.2-1.0); Calcium 8.3 MG/DL (8.5-10.1); Ferritin 582.7 ng/ml (26-388); Total Protein 6.1 G/DL (6.4-8.3)
[2019-11-04 06:02] LABS: Eosinophils 4 % (0-10); Hypochromasia 1+; Lymphocytes 52 % (20-55); Microcytosis Slight; Ovalocytes Few; Platelet Estimate Decreased; Segmented Neutrophils 38 % (50-85); Total Cells Counted 100
[2019-11-04 06:25] LABS: Risk Ratio 4.68; Thyroid Stimulating Hormone 0.241 uIU/ml (0.358-3.74); VLDL CHOLESTEROL 26.8 MG/DL
[2019-11-04] MEDS ORDERED: SODIUM CHLORIDE 0.9% 1,000 ML IV PRN (06:38)
[2019-11-04 07:00] LABS: Sedimentation Rate-Westergren 74 MM/HR (0-20)
[2019-11-04] MEDS ORDERED: NITROGLYCERIN SL 0.4 MG TABLET SL PRN (15:44)
[2019-11-04] MEDS ORDERED: HEPARIN DRIP 25,000 UNITS/500 ML PREMIX IV SCH (16:00)
[2019-11-04 17:54] LABS: Hematocrit 32.6 VOL% (42.0-52.0); Hemoglobin 10.6 GM/DL (14.0-18.0)
[2019-11-04] MEDS: cefTRIAXone 1,000 MG in SYRINGE 1 EACH IV SCH (18:47)
[2019-11-04] MEDS: PANTOPRAZOLE 40 MG TABLET PO SCH ×2 (18:47→21:38)
[2019-11-04] MEDS: AZITHROMYCIN INJ 500 MG in SODIUM CHLORIDE 0.9% 250 ML IV SCH (18:52)
[2019-11-04] MEDS ORDERED: TAMSULOSIN 0.4 MG CAPSULE PO SCH (21:00)
[2019-11-04] MEDS ORDERED: PANTOPRAZOLE 40 MG TABLET PO SCH (21:00)
[2019-11-05 01:20] LABS: Basophils # 0.1 10*3/uL (0.0-0.2); Basophils % 1.6 % (0.0-0.8); Eosinophils # 0.5 10*3/uL (0.0-0.87); Eosinophils % 7.8 % (0.00-10.9); Hematocrit 29.5 VOL% (42.0-52.0); Hemoglobin 9.6 GM/DL (14.0-18.0); Immature Granulocytes Absolute 0.06 #; Lymphocytes # 2.5 10*3/uL (1.4-4.0); Lymphocytes % 40.9 % (21.2-54.2); Mean Corpuscular HGB Conc 32.5 GM/DL (32-36); Mean Corpuscular Volume 88.6 FL (87-102); NRBC # 0.03 10*3/uL; Neutrophils % 39.7 % (38.7-73.9); Red Blood Count 3.33 MC/CUMM (3.8-5.5); Red Cell Distribution Width 16.7 % (9.3-17.3); White Blood Count 6.1 T/CUMM (4-12)
[2019-11-05 01:28] LABS: Platelet Count 93 T/CUMM (130-400)
[2019-11-05 01:41] LABS: Albumin 2.6 G/DL (3.4-5.0); Bilirubin,Total 0.8 MG/DL (0.2-1.0); Calcium 8.4 MG/DL (8.5-10.1); Osmolality,Calculated 296.1 MOS/KG (273-304); Total Protein 6.2 G/DL (6.4-8.3)
[2019-11-05 03:37] LABS: Atypical Lymphocytes Few
[2019-11-05 03:38] LABS: Hypochromasia 1+; Ovalocytes 1+; Platelet Estimate Decreased
[2019-11-05 07:22] LABS: Sedimentation Rate-Westergren 44 MM/HR (0-20)
[2019-11-05] MEDS ORDERED: FINASTERIDE 5 MG TABLET PO SCH (09:00)
[2019-11-05] MEDS ORDERED: TORSEMIDE 20 MG TABLET PO SCH (09:00)
[2019-11-05] MEDS ORDERED: FERROUS SULFATE 325 MG TABLET PO SCH (09:00)
[2019-11-05] MEDS: PANTOPRAZOLE 40 MG TABLET PO SCH (10:37)
[2019-11-05 11:33] VITALS: BP 156/86
== END 2019-11-05 15:26 | disposition home or self-care (01) ==
LOC: N.ED 14:18 → N.EDINP 14:18 → N.2E 17:53
PROVIDERS: ADMIT Hospitalist; ATTEND Hospitalist

== ENCOUNTER 2020-01-04 13:03 | Inpatient (IN) ==
[2020-01-04] MEDS ORDERED: SODIUM CHLORIDE 0.9% 1,000 ML IV STA (13:46)
[2020-01-04] MEDS ORDERED: ONDANSETRON 4 MG/2 ML VIAL IV STA (13:46)
[2020-01-04] MEDS ORDERED: HYDROmorphone 2 MG/1 ML VIAL IV STA (13:46)
[2020-01-04 14:54] LABS: Albumin 2.5 G/DL (3.4-5.0); Bilirubin,Total 1.5 MG/DL (0.2-1.0); Calcium 8.2 MG/DL (8.5-10.1); Osmolality,Calculated 302.5 MOS/KG (273-304); Potassium 4.9 MMOL/L (3.5-5.1); Total Protein 6.4 G/DL (6.4-8.3)
[2020-01-04] MEDS ORDERED: metroNIDAZOLE INJ 500 MG in PREMIX 1 EACH IV STA (14:58)
[2020-01-04] MEDS ORDERED: CIPROFLOXACIN 500 MG TABLET PO STA (14:58)
[2020-01-04 16:02] LABS: Bilirubin,Urine Negative (Negative); Blood, Urine Negative (Negative); Glucose,Urine (UA) Negative (Negative); Hyaline Casts,Urine 1 /LPF (0-3); Ketones,Urine Negative (Negative); Mucus,Urine Occasional /LPF (Occasional); Nitrite,Urine Negative (Negative); Protein,Urine 100 MG/DL; RBC,Urine 2 /HPF (0-4); Urine Appearance Slightly Hazy (Clear); Urine Color Amber (Yellow); Urine Specific Gravity 1.017 (1.001-1.035)
[2020-01-04] MEDS ORDERED: SODIUM CHLORIDE 0.9% 1,000 ML IV PRN ×2 (16:02→18:30)
[2020-01-04 16:06] LABS: Eosinophils 2 % (0-10); Lymphocytes 94 % (20-55); Segmented Neutrophils 4 % (50-85); Total Cells Counted 100
[2020-01-04] MEDS ORDERED: DEXTROSE 50% 25 GM/50 ML VIAL IV PRN (16:08)
[2020-01-04] MEDS ORDERED: GLUCAGON 1 MG VIAL IM PRN (16:08)
[2020-01-04] MEDS ORDERED: ONDANSETRON 4 MG TABLET PO PRN (16:13)
[2020-01-04] MEDS: PANTOPRAZOLE 40 MG TABLET PO SCH (21:00)
[2020-01-04] MEDS: oxyCODONE/ACETAMINOPHEN 5-325 MG TABLET PO PRN (21:00)
[2020-01-04] MEDS: TORSEMIDE 20 MG TABLET PO SCH (21:00)
[2020-01-04] MEDS: TAMSULOSIN 0.4 MG CAPSULE PO SCH (21:00)
[2020-01-04] MEDS: DOCUSATE SODIUM 100 MG CAPSULE PO SCH (21:00)
[2020-01-04] MEDS: MIRTAZAPINE 15 MG TABLET PO SCH (21:00)
[2020-01-04] MEDS: metroNIDAZOLE INJ 500 MG in PREMIX 1 EACH IV SCH (21:01)
[2020-01-05] MEDS: ONDANSETRON 4 MG/2 ML VIAL IV PRN ×2 (02:12→07:33)
[2020-01-05] MEDS: metroNIDAZOLE INJ 500 MG in PREMIX 1 EACH IV SCH ×3 (02:30→16:14)
[2020-01-05] MEDS: SODIUM CHLORIDE 0.9% 1,000 ML IV SCH ×2 (05:18→13:06)
[2020-01-05 07:16] LABS: Eosinophils % 2.1 % (0.00-10.9); Hematocrit 20.7 VOL% (42.0-52.0); Hemoglobin 6.7 GM/DL (14.0-18.0); Lymphocytes # 0.9 10*3/uL (1.4-4.0); Lymphocytes % 94.7 % (21.2-54.2); Mean Corpuscular HGB Conc 32.4 GM/DL (32-36); Mean Corpuscular Volume 88.1 FL (87-102); Monocytes % 1.1 % (1.7-12.7); Neutrophils % 2.1 % (38.7-73.9); Red Blood Count 2.35 MC/CUMM (3.8-5.5); Red Cell Distribution Width 15.5 % (9.3-17.3)
[2020-01-05 07:25] LABS: Platelet Count 6 T/CUMM (130-400)
[2020-01-05 07:40] LABS: Hypochromasia 2+; Lymphocytes 94 % (20-55); Microcytosis 1+; Ovalocytes Slight; Platelet Estimate Decreased; Segmented Neutrophils 5 % (50-85); Total Cells Counted 100
[2020-01-05 07:44] LABS: Albumin 2.2 G/DL (3.4-5.0); Bilirubin,Total 1.7 MG/DL (0.2-1.0); Osmolality,Calculated 306.7 MOS/KG (273-304); Total Protein 5.9 G/DL (6.4-8.3)
[2020-01-05] MEDS: FERROUS SULFATE 325 MG TABLET PO SCH ×2 (08:04→19:07)
[2020-01-05] MEDS: DOCUSATE SODIUM 100 MG CAPSULE PO SCH ×3 (08:05→20:53)
[2020-01-05] MEDS: PANTOPRAZOLE 40 MG TABLET PO SCH ×2 (08:05→20:53)
[2020-01-05] MEDS: FINASTERIDE 5 MG TABLET PO SCH (08:05)
[2020-01-05] MEDS: TORSEMIDE 20 MG TABLET PO SCH ×3 (08:05→20:52)
[2020-01-05] MEDS: PROMETHAZINE INJ 25 MG in SODIUM CHLORIDE 0.9% 50 ML IV PRN ×2 (09:20→17:35)
[2020-01-05] MEDS: CIPROFLOXACIN INJ 400 MG in PREMIX 1 EACH IV SCH (16:13)
[2020-01-05] MEDS: MIRTAZAPINE 15 MG TABLET PO SCH (20:53)
[2020-01-05] MEDS: TAMSULOSIN 0.4 MG CAPSULE PO SCH (20:53)
[2020-01-05] MEDS: PIPERACILLIN/TAZOBACTAM 3,375 MG in SODIUM CHLORIDE 0.9% 100 ML IV SCH (20:59)
[2020-01-05] MEDS: oxyCODONE/ACETAMINOPHEN 5-325 MG TABLET PO PRN (23:43)
[2020-01-06] MEDS ORDERED: oxyCODONE/ACETAMINOPHEN 5-325 MG TABLET PO PRN (02:10)
[2020-01-06] MEDS: SODIUM CHLORIDE 0.9% 1,000 ML IV SCH ×3 (03:11→14:56)
[2020-01-06] MEDS: CIPROFLOXACIN INJ 400 MG in PREMIX 1 EACH IV SCH ×2 (05:47→22:13)
[2020-01-06 05:50] LABS: Eosinophils % 2.2 % (0.00-10.9); Hematocrit 23.2 VOL% (42.0-52.0); Immature Granulocytes % 2.2 %; Immature Granulocytes Absolute 0.01 #; Lymphocytes # 0.4 10*3/uL (1.4-4.0); Lymphocytes % 91.1 % (21.2-54.2); Mean Corpuscular HGB Conc 34.5 GM/DL (32-36); Mean Corpuscular Volume 84.7 FL (87-102); Monocytes % 2.2 % (1.7-12.7); Neutrophils % 2.3 % (38.7-73.9); Red Blood Count 2.74 MC/CUMM (3.8-5.5); Red Cell Distribution Width 15.4 % (9.3-17.3)
[2020-01-06 05:57] LABS: Platelet Count 14 T/CUMM (130-400); White Blood Count 0.5 T/CUMM (4-12)
[2020-01-06 06:14] LABS: Lymphocytes 90 % (20-55); Total Cells Counted 100
[2020-01-06 06:15] LABS: Burr Cells Slight; Hypochromasia 1+; Microcytosis 1+; Ovalocytes Slight; Platelet Estimate Decreased
[2020-01-06 06:23] LABS: Alanine Aminotransferase < 9 U/L (16-61); Albumin 2.1 G/DL (3.4-5.0); Alkaline Phosphatase 76 U/L (45-117); Aspartate Amino Transferase 7 U/L (0-37); Blood Urea Nitrogen 115 MG/DL (7-18); Calcium 7.7 MG/DL (8.5-10.1); Carbon Dioxide 16 MMOL/L (21-32); Estimated Glom Filtration Rate 9 ML/MIN; Glucose 115 MG/DL (74-106); Osmolality,Calculated 318.3 MOS/KG (273-304); Potassium 5.1 MMOL/L (3.5-5.1); Sodium 141 MMOL/L (136-145); Total Protein 5.7 G/DL (6.4-8.3)
[2020-01-06] MEDS: PROMETHAZINE INJ 25 MG in SODIUM CHLORIDE 0.9% 50 ML IV PRN ×2 (09:02→23:38)
[2020-01-06] MEDS ORDERED: ACETAMINOPHEN 325 MG TABLET ONE (09:08)
[2020-01-06] MEDS: ACETAMINOPHEN 325 MG TABLET PO PRN ×2 (09:15→13:00)
[2020-01-06] MEDS: PIPERACILLIN/TAZOBACTAM 3,375 MG in SODIUM CHLORIDE 0.9% 100 ML IV SCH ×2 (09:20→20:35)
[2020-01-06] MEDS: FINASTERIDE 5 MG TABLET PO SCH (13:06)
[2020-01-06] MEDS: TORSEMIDE 20 MG TABLET PO SCH ×2 (13:06→20:29)
[2020-01-06] MEDS: DOCUSATE SODIUM 100 MG CAPSULE PO SCH ×2 (13:06→20:29)
[2020-01-06] MEDS: PANTOPRAZOLE 40 MG TABLET PO SCH ×2 (13:06→20:30)
[2020-01-06] MEDS: FERROUS SULFATE 325 MG TABLET PO SCH (13:06)
[2020-01-06] MEDS: MIRTAZAPINE 15 MG TABLET PO SCH (20:30)
[2020-01-06] MEDS: TAMSULOSIN 0.4 MG CAPSULE PO SCH (20:30)
[2020-01-06] MEDS: ONDANSETRON 4 MG/2 ML VIAL IV PRN (20:36)
[2020-01-07] MEDS: SODIUM CHLORIDE 0.9% 1,000 ML IV SCH ×2 (04:09→14:09)
[2020-01-07 06:18] LABS: Eosinophils % 6.2 % (0.00-10.9); Hematocrit 23.5 VOL% (42.0-52.0); Lymphocytes # 0.6 10*3/uL (1.4-4.0); Lymphocytes % 90.8 % (21.2-54.2); Mean Corpuscular Volume 83.6 FL (87-102); Red Blood Count 2.81 MC/CUMM (3.8-5.5); Red Cell Distribution Width 15.7 % (9.3-17.3)
[2020-01-07 06:36] LABS: Uric Acid 12.1 MG/DL (3.5-7.2)
[2020-01-07 06:40] LABS: Alanine Aminotransferase < 6 U/L (16-61); Alkaline Phosphatase 62 U/L (45-117); Aspartate Amino Transferase 12 U/L (0-37); Blood Urea Nitrogen 118 MG/DL (7-18); Calcium 8.1 MG/DL (8.5-10.1); Carbon Dioxide 15 MMOL/L (21-32); Estimated Glom Filtration Rate 9 ML/MIN; Glucose 112 MG/DL (74-106); Osmolality,Calculated 321.1 MOS/KG (273-304); Potassium 4.6 MMOL/L (3.5-5.1); Sodium 142 MMOL/L (136-145); Total Protein 5.6 G/DL (6.4-8.3)
[2020-01-07 07:06] LABS: Platelet Count 10 T/CUMM (130-400)
[2020-01-07 07:07] LABS: White Blood Count 0.7 T/CUMM (4-12)
[2020-01-07 07:14] LABS: Eosinophils 8 % (0-10); Lymphocytes 84 % (20-55); Platelet Estimate Decreased; Segmented Neutrophils 4 % (50-85); Total Cells Counted 100
[2020-01-07 07:15] LABS: Anisocytosis 2+; Burr Cells 1+
[2020-01-07] MEDS ORDERED: SODIUM CHLORIDE 0.9% 1,000 ML IV PRN (08:45)
[2020-01-07] MEDS: PIPERACILLIN/TAZOBACTAM 3,375 MG in SODIUM CHLORIDE 0.9% 100 ML IV SCH ×2 (08:46→21:10)
[2020-01-07 09:30] LABS: Bilirubin,Urine Negative (Negative); Blood, Urine Small mg/dL (Negative); Glucose,Urine (UA) Negative (Negative); Hyaline Casts,Urine 1 /LPF (0-3); Ketones,Urine Negative (Negative); Mucus,Urine Occasional /LPF (Occasional); Nitrite,Urine Negative (Negative); Protein,Urine 100 MG/DL; RBC,Urine 1 /HPF (0-4); Urine Appearance CLEAR (Clear); Urine Color Yellow (Yellow); Urine Specific Gravity 1.013 (1.001-1.035); WBC,Urine <1 /HPF (0-6)
[2020-01-07] MEDS: PROMETHAZINE INJ 25 MG in SODIUM CHLORIDE 0.9% 50 ML IV PRN ×2 (09:32→18:10)
[2020-01-07] MEDS: FINASTERIDE 5 MG TABLET PO SCH (10:18)
[2020-01-07] MEDS: TORSEMIDE 20 MG TABLET PO SCH ×2 (10:18→23:34)
[2020-01-07] MEDS: DOCUSATE SODIUM 100 MG CAPSULE PO SCH ×2 (10:18→23:34)
[2020-01-07] MEDS: FERROUS SULFATE 325 MG TABLET PO SCH (10:18)
[2020-01-07] MEDS: PANTOPRAZOLE 40 MG TABLET PO SCH ×2 (10:19→23:34)
[2020-01-07] MEDS: CIPROFLOXACIN INJ 400 MG in PREMIX 1 EACH IV SCH (16:24)
[2020-01-07] MEDS: ONDANSETRON 4 MG/2 ML VIAL IV PRN (21:09)
[2020-01-07] MEDS: TAMSULOSIN 0.4 MG CAPSULE PO SCH (23:34)
[2020-01-07] MEDS: MIRTAZAPINE 15 MG TABLET PO SCH (23:35)
[2020-01-08] MEDS: SODIUM CHLORIDE 0.9% 1,000 ML IV SCH ×2 (05:36→16:14)
[2020-01-08 06:51] LABS: Eosinophils # 0.1 10*3/uL (0.0-0.87); Eosinophils % 7.2 % (0.00-10.9); Hematocrit 24.4 VOL% (42.0-52.0); Hemoglobin 8.3 GM/DL (14.0-18.0); Lymphocytes # 0.6 10*3/uL (1.4-4.0); Lymphocytes % 85.5 % (21.2-54.2); Mean Corpuscular Volume 84.7 FL (87-102); Monocytes % 1.4 % (1.7-12.7); Neutrophils % 5.9 % (38.7-73.9); Red Blood Count 2.88 MC/CUMM (3.8-5.5); Red Cell Distribution Width 15.7 % (9.3-17.3)
[2020-01-08 06:55] LABS: Platelet Count 14 T/CUMM (130-400); White Blood Count 0.7 T/CUMM (4-12)
[2020-01-08 07:21] LABS: Alanine Aminotransferase < 6 U/L (16-61); Albumin 1.9 G/DL (3.4-5.0); Alkaline Phosphatase 54 U/L (45-117); Aspartate Amino Transferase 6 U/L (0-37); Blood Urea Nitrogen 128 MG/DL (7-18); Calcium 7.8 MG/DL (8.5-10.1); Carbon Dioxide 17 MMOL/L (21-32); Eosinophils 8 % (0-10); Estimated Glom Filtration Rate 10 ML/MIN; Glucose 105 MG/DL (74-106); Lymphocytes 84 % (20-55); Osmolality,Calculated 330.6 MOS/KG (273-304); Platelet Estimate Decreased; Potassium 4.6 MMOL/L (3.5-5.1); Segmented Neutrophils 4 % (50-85); Sodium 146 MMOL/L (136-145); Total Cells Counted 100; Total Protein 5.6 G/DL (6.4-8.3)
[2020-01-08 07:22] LABS: Anisocytosis 1+; Burr Cells 2+; Poikilocytosis 1+
[2020-01-08] MEDS: PIPERACILLIN/TAZOBACTAM 3,375 MG in SODIUM CHLORIDE 0.9% 100 ML IV SCH ×2 (09:45→20:47)
[2020-01-08] MEDS: FINASTERIDE 5 MG TABLET PO SCH (09:50)
[2020-01-08] MEDS: FERROUS SULFATE 325 MG TABLET PO SCH (09:50)
[2020-01-08] MEDS: PANTOPRAZOLE 40 MG TABLET PO SCH ×2 (09:51→23:28)
[2020-01-08] MEDS: TORSEMIDE 20 MG TABLET PO SCH ×2 (09:52→23:28)
[2020-01-08] MEDS: DOCUSATE SODIUM 100 MG CAPSULE PO SCH ×2 (09:53→23:28)
[2020-01-08] MEDS: PROMETHAZINE INJ 25 MG in SODIUM CHLORIDE 0.9% 50 ML IV PRN ×2 (13:41→21:54)
[2020-01-08] MEDS: CIPROFLOXACIN INJ 400 MG in PREMIX 1 EACH IV SCH (13:46)
[2020-01-08] MEDS: ONDANSETRON 4 MG/2 ML VIAL IV PRN (20:54)
[2020-01-08] MEDS: MIRTAZAPINE 15 MG TABLET PO SCH (23:28)
[2020-01-08] MEDS: TAMSULOSIN 0.4 MG CAPSULE PO SCH (23:28)
[2020-01-09 06:04] LABS: Hematocrit 25.3 VOL% (42.0-52.0); Hemoglobin 8.5 GM/DL (14.0-18.0); Lymphocytes # 0.9 10*3/uL (1.4-4.0); Lymphocytes % 91.9 % (21.2-54.2); Mean Corpuscular HGB Conc 33.6 GM/DL (32-36); Mean Corpuscular Volume 85.2 FL (87-102); Neutrophils % 4.1 % (38.7-73.9); Red Blood Count 2.97 MC/CUMM (3.8-5.5); Red Cell Distribution Width 15.9 % (9.3-17.3)
[2020-01-09 06:07] LABS: Platelet Count 20 T/CUMM (130-400)
[2020-01-09 06:22] LABS: Calcium 8.1 MG/DL (8.5-10.1); Potassium 4.6 MMOL/L (3.5-5.1)
[2020-01-09 06:41] LABS: Anisocytosis 1+; Atypical Lymphocytes Few; Eosinophils 4 % (0-10); Lymphocytes 92 % (20-55); Platelet Estimate Decreased; Segmented Neutrophils 2 % (50-85); Total Cells Counted 100
[2020-01-09 06:42] LABS: Burr Cells 2+; Macrocytosis Slight; Ovalocytes Few; Poikilocytosis 1+
[2020-01-09] MEDS: SODIUM CHLORIDE 0.9% 1,000 ML IV SCH (07:40)
[2020-01-09] MEDS: SODIUM CHLORIDE 0.45% 1,000 ML IV SCH (08:57)
[2020-01-09] MEDS: CIPROFLOXACIN INJ 400 MG in PREMIX 1 EACH IV SCH (08:57)
[2020-01-09] MEDS: FERROUS SULFATE 325 MG TABLET PO SCH (09:32)
[2020-01-09] MEDS: TORSEMIDE 20 MG TABLET PO SCH ×2 (09:32→21:08)
[2020-01-09] MEDS: PANTOPRAZOLE 40 MG TABLET PO SCH ×2 (09:32→21:09)
[2020-01-09] MEDS: DOCUSATE SODIUM 100 MG CAPSULE PO SCH ×2 (09:32→21:08)
[2020-01-09] MEDS: FINASTERIDE 5 MG TABLET PO SCH (09:32)
[2020-01-09] MEDS: PIPERACILLIN/TAZOBACTAM 3,375 MG in SODIUM CHLORIDE 0.9% 100 ML IV SCH ×2 (11:04→21:09)
[2020-01-09] MEDS: TAMSULOSIN 0.4 MG CAPSULE PO SCH (21:09)
[2020-01-09] MEDS: MIRTAZAPINE 15 MG TABLET PO SCH (21:09)
[2020-01-10] MEDS: CIPROFLOXACIN INJ 400 MG in PREMIX 1 EACH IV SCH ×2 (02:31→21:12)
[2020-01-10 06:05] LABS: Eosinophils % 2.5 % (0.00-10.9); Hematocrit 22.9 VOL% (42.0-52.0); Hemoglobin 7.7 GM/DL (14.0-18.0); Lymphocytes # 0.7 10*3/uL (1.4-4.0); Lymphocytes % 89.9 % (21.2-54.2); Mean Corpuscular HGB Conc 33.6 GM/DL (32-36); Mean Corpuscular Volume 85.8 FL (87-102); Monocytes % 2.5 % (1.7-12.7); Neutrophils % 5.1 % (38.7-73.9); Red Blood Count 2.67 MC/CUMM (3.8-5.5); Red Cell Distribution Width 15.9 % (9.3-17.3)
[2020-01-10 06:07] LABS: Platelet Count 7 T/CUMM (130-400)
[2020-01-10 06:08] LABS: White Blood Count 0.8 T/CUMM (4-12)
[2020-01-10 06:28] LABS: Calcium 7.7 MG/DL (8.5-10.1); Osmolality,Calculated 337.3 MOS/KG (273-304); Potassium 4.6 MMOL/L (3.5-5.1)
[2020-01-10 06:35] LABS: Hypochromasia 2+; Lymphocytes 100 % (20-55); Microcytosis 1+; Ovalocytes Slight; Platelet Estimate Decreased; Total Cells Counted 100
[2020-01-10] MEDS ORDERED: SODIUM CHLORIDE 0.9% 1,000 ML IV PRN (06:50)
[2020-01-10] MEDS: SODIUM CHLORIDE 0.45% 1,000 ML IV SCH ×2 (07:44→13:18)
[2020-01-10] MEDS: PIPERACILLIN/TAZOBACTAM 3,375 MG in SODIUM CHLORIDE 0.9% 100 ML IV SCH ×2 (08:46→21:14)
[2020-01-10] MEDS: DOCUSATE SODIUM 100 MG CAPSULE PO SCH ×2 (08:48→21:17)
[2020-01-10] MEDS: FERROUS SULFATE 325 MG TABLET PO SCH (08:48)
[2020-01-10] MEDS: FINASTERIDE 5 MG TABLET PO SCH (08:49)
[2020-01-10] MEDS: PANTOPRAZOLE 40 MG TABLET PO SCH ×2 (08:49→21:13)
[2020-01-10] MEDS: ONDANSETRON 4 MG/2 ML VIAL IV PRN (10:13)
[2020-01-10] MEDS: TAMSULOSIN 0.4 MG CAPSULE PO SCH (21:13)
[2020-01-10] MEDS: MIRTAZAPINE 15 MG TABLET PO SCH (21:16)
[2020-01-11 06:00] LABS: Eosinophils % 2.3 % (0.00-10.9); Hematocrit 21.1 VOL% (42.0-52.0); Hemoglobin 7.1 GM/DL (14.0-18.0); Lymphocytes # 0.8 10*3/uL (1.4-4.0); Lymphocytes % 90.9 % (21.2-54.2); Mean Corpuscular HGB Conc 33.6 GM/DL (32-36); Mean Corpuscular Volume 85.8 FL (87-102); Monocytes % 2.3 % (1.7-12.7); Neutrophils % 4.5 % (38.7-73.9); Red Blood Count 2.46 MC/CUMM (3.8-5.5); Red Cell Distribution Width 15.9 % (9.3-17.3)
[2020-01-11 06:10] LABS: Calcium 7.8 MG/DL (8.5-10.1); Osmolality,Calculated 334.4 MOS/KG (273-304); Potassium 4.5 MMOL/L (3.5-5.1)
[2020-01-11 06:15] LABS: Platelet Count 10 T/CUMM (130-400); White Blood Count 0.9 T/CUMM (4-12)
[2020-01-11 06:59] LABS: Anisocytosis 1+; Atypical Lymphocytes Few; Eosinophils 3 % (0-10); Lymphocytes 80 % (20-55); Macrocytosis 1+; Platelet Estimate Decreased; Reactive Lymphocytes Few; Segmented Neutrophils 7 % (50-85); Total Cells Counted 100
[2020-01-11] MEDS: SODIUM CHLORIDE 0.45% 1,000 ML IV SCH (08:45)
[2020-01-11] MEDS: PIPERACILLIN/TAZOBACTAM 3,375 MG in SODIUM CHLORIDE 0.9% 100 ML IV SCH ×2 (08:46→23:10)
[2020-01-11] MEDS: PANTOPRAZOLE 40 MG TABLET PO SCH ×2 (08:50→20:07)
[2020-01-11] MEDS: FERROUS SULFATE 325 MG TABLET PO SCH (08:50)
[2020-01-11] MEDS: FINASTERIDE 5 MG TABLET PO SCH (08:50)
[2020-01-11] MEDS: DOCUSATE SODIUM 100 MG CAPSULE PO SCH ×2 (09:57→20:06)
[2020-01-11] MEDS ORDERED: SODIUM CHLORIDE 0.9% 1,000 ML IV PRN ×3 (12:53→12:57)
[2020-01-11] MEDS: MIRTAZAPINE 15 MG TABLET PO SCH (20:07)
[2020-01-11] MEDS: TAMSULOSIN 0.4 MG CAPSULE PO SCH (20:07)
[2020-01-12] MEDS: SODIUM CHLORIDE 0.45% 1,000 ML IV SCH (02:42)
[2020-01-12 08:38] VITALS: BP 138/95
[2020-01-12] MEDS: PIPERACILLIN/TAZOBACTAM 3,375 MG in SODIUM CHLORIDE 0.9% 100 ML IV SCH (10:01)
[2020-01-12] MEDS: DOCUSATE SODIUM 100 MG CAPSULE PO SCH (12:13)
[2020-01-12] MEDS: PANTOPRAZOLE 40 MG TABLET PO SCH (12:14)
[2020-01-12] MEDS: FINASTERIDE 5 MG TABLET PO SCH (12:14)
== END 2020-01-12 14:50 | disposition hospice, home (50) | DRG 809 ==
LOC: N.ED 13:03 → SUATTDRO 16:08 → N.EDINP 16:08 → N.4E 17:54
PROVIDERS: ADMIT Internal Medicine; ATTEND Internal Medicine